=== PATIENT | male | born 1940 | race Caucasian/White ===

== ENCOUNTER 2021-10-15 09:02 | Inpatient (IN) | payer OTHER ==
[~2021-10-15] VITALS: Ht 180.3 cm; Wt 63.5 kg
--- NOTE | ~2021-10-15 | EMS ---
[facility] [address] [place] [address] EMS Patient Care Report Name: CELESTE URENA Room: [address] [place] M.R.#: [id number] Admission: 10/15/21 Attend Phys: Swetha Martinez Discharge: 10/15/21 Date of : 38 Report #: [id number] THIS REPORT FOR: //name// Report Transmitted: 11/01/2021 13:15 EMS Care Summary [facility] Incident [id number] @ 10/15/2021 08:29 Incident Location [address] [place] [address] [place] [address] Patient CELESTE URENA Male, 81 Years 1940 Patient Address [address] [place] [address] [place] [address] Patient History Gastro-Esophageal Reflux Disease (GERD),Acuña's-Palsy, Patient Allergies No known allergies, Patient Medications Tamsulosin, Mirtazapine, Omeprazole, Chief Complaint L Sided Weakness Disposition Transported [place] Reason Stroke/CVA Transported To [facility] Narrative 81 y/o male pt found laying supine in bed at home with family. Pt was awake, but appeared weak. Daughter on scene states that the patient got up around 8AM and drank some coffee, but then suddenly lost feeling in his left side, and was unable to ambulate. During [place] Stroke Assessment, left side was found to [place] [address] EMS Patient Care Report Name: CELESTE URENA Room: [address] [place] M.R.#: [id number] Admission: 10/15/21 Attend Phys: Swetha Martinez Discharge: 10/15/21 Date of : 38 Report #: [id number] be completely limp, facial droop was present, as well as aphasia present. He also was incontinent. Pt appeared lethargic and slightly confused. 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 Once in ambulance, vitals were assessed and pt was placed on color television console monitor showing NSR. During transport, 2 IV's were established in the patient and blood glucose was checked from IV catheter. Pt remained awake, but slightly confused with a GCS of 14. Repeat [place] Stroke scale performed during transport revealed no changes. A stroke activation was relayed to [place] during transport. Pt brought directly to CT scan after arrival at hospital and patient care was transferred to RN. Initial Vitals @08:50P: 89,R: 14,BP: 135/73,GCS: 14,Glucose: 177,SpO2: 93,Revised Trauma: 12, @09:00P: 86,R: 14,BP: 117/61,GCS: 14,SpO2: 91,Revised Trauma: 12, @09:11P: 92,R: 14,BP: 129/103,Pain: 0/10,GCS: 14,SpO2: 92,Revised Trauma: 12,NV Suspected: false Impression Stroke Procedures @09:01 IV Therapy - [place] 10cc (20 ga) Site: Antecubital-Left Response: UnchangedSucceeded @09:09 IV Therapy - [place] 10cc (18 ga) Site: Antecubital-Right Response: UnchangedSucceeded Timeline 08:29,Call Received 08:29,Dispatched 08:31,En Route 08:40,Initial Responder On Scene 08:40,On Scene 08:41,At Patient 08:50,Depart Scene 08:50,BP: 135/73 M,PULSE: 89,RR: 14 R,SPO2: 93 Ox,ETCO2: ,B,PAIN: ,GCS: 14, 09:00,BP: 117/61 M,PULSE: 86,RR: 14 R,SPO2: 91 Ox,ETCO2: ,BG: ,PAIN: ,GCS: 14, 09:01,IV Therapy - [place] 10cc 20 ga Site: Antecubital-Left,Response: UnchangedSucceeded, 09:09,IV Therapy - [place] 10cc 18 ga Site: Antecubital-Right,Response: UnchangedSucceeded, 09:11,BP: 129/103 M,PULSE: 92,RR: 14 R,SPO2: 92 Ox,ETCO2: ,BG: ,PAIN: 0,GCS: 14, 09:12,[place] [address] EMS Patient Care Report Name: CELESTE URENA Room: [address] [place] [facility].#: [id number] Admission: 10/15/21 Attend Phys: Swetha Martinez Discharge: 10/15/21 Date of : 38 Report #: [id number] 09:15,Transfer Patient 09:45,Call Closed 09:45,In District Disclaimer [email or web address] Copyright 2021 [employer] This EMS Care Summary contains data elements from the applicable legal record (which may be displayed differently). It is designed to provide pertinent information for the following purposes: continuity of care, clinical quality, and state data reporting. The complete legal record is available to ED staff and administrators of the receiving hospital in [employer]'s Patient Tracker. All data is provided "as is."
[2021-10-15 09:13] VITALS: BP 152/62
[2021-10-15 09:46] LABS: ABSOLUTE EOSINOPHILS 0.1 thou/uL (0.0-0.7); ABSOLUTE LYMPHOCYTES 1.1 thou/uL (0.8-5.3); ABSOLUTE MONOCYTES 0.4 thou/uL (0.0-1.2); BASOPHILS 0.4 %; HEMATOCRIT 41.4 % (42.0-52.0); HEMOGLOBIN 14.2 gm/dL (14.0-18.0); LYMPHOCYTES 20.2 %; MCH 30.6 pg (26.0-34.0); MCHC 34.2 g/dL (28.0-37.0); MCV 89.5 fL (80.0-100.0); MONOCYTES 7.6 %; MPV 7.9 fl. (7.2-11.1); NUCLEATED RBCS 0 /100WBC; PLATELET COUNT* 195 thou/uL (150-400); POLYS 70.8 %; RBC 4.62 mil/uL (4.50-6.00); RDW-CV 15.2 % (10.5-14.5); WBC 5.7 thou/uL (4.0-11.0)
[2021-10-15 10:00] LABS: APTT 25.4 Seconds (25.0-31.3); INR 1.1; PROTIME 11.2 Seconds (9.20-11.50)
[2021-10-15 10:06] LABS: CALCIUM 8.1 mg/dL (8.5-10.1); CREATININE 0.8 mg/dL (0.6-1.3); POTASSIUM 3.5 mmol/L (3.5-5.1)
[2021-10-15 10:15] LABS: ALBUMIN 2.6 g/dL (3.4-5.0); TOTAL BILIRUBIN 0.5 mg/dL (<0.1-1.0); TOTAL PROTEIN 6.1 g/dL (6.4-8.2)
[2021-10-15] MEDS ORDERED: FLOMAX0.4 MG PO (10:27)
[2021-10-15] MEDS ORDERED: MIRTAZAPINE7.5 MG PO (10:28)
[2021-10-15] MEDS ORDERED: OMEPRAZOLE 20 M20 M1 PO (10:28)
--- NOTE | 2021-10-15 11:21 | EKG ---
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 10/15/21 1121 0 Baldemar Watson MD, FACC /EPI
[2021-10-15 11:25] LABS: URINE BILIRUBIN NEGATIVE (Negative); URINE BLOOD NEGATIVE (Negative); URINE CLARITY CLEAR; URINE COLOR YELLOW; URINE GLUCOSE-RANDOM NEGATIVE (Negative); URINE KETONES NEGATIVE (Negative); URINE LEUKOCYTES NEGATIVE (Negative); URINE NITRITE NEGATIVE (Negative); URINE PROTEIN NEGATIVE (Negative); URINE SPECIFIC GRAVITY >= 1.030 (1.005-1.030)
[2021-10-15 15:33] VITALS: BP 100/52
== END 2021-10-15 15:27 | disposition short-term general hospital (02) | DRG 62 ==
LOC: M.ERS 09:02 → M.TBA-ER 12:04
PROVIDERS: Emergency Medicine Emergency Medical Services; ADMIT Internal Medicine; ATTEND Internal Medicine
DX: I63.9 Cerebral infarction, unspecified (principal); G81.94 Hemiplegia, unspecified affecting left nondominant side; E44.0 Moderate protein-calorie malnutrition; Z20.822 Contact with and (suspected) exposure to COVID-19; Z79.899 Other long term (current) drug therapy; R29.704 NIHSS score 4; N40.0 Benign prostatic hyperplasia without lower urinary tract symptoms